=== PATIENT | male | born 1990 | race Caucasian/White ===

== ENCOUNTER 2021-06-23 23:19 | Emergency (ER) | payer BC ==
[2021-06-23] MEDS ORDERED: Lidocaine 1% 10 ML MDV INJECT ONE (23:39)
--- NOTE | 2021-06-24 01:16 | EDM.PDOC ---
ED HPI GENERAL MEDICAL PROBLEM - General Chief Complaint: Upper Extremity Injury/Pain Stated Complaint: RT HAND INJURY Time Seen by Provider: 06/24/21 00:18 Source of Information: Reports: Patient History Limitations: Reports: No Limitations - History of Present Illness INITIAL COMMENTS - FREE TEXT/NARRATIVE: Patient is a 30-year-old male who injured his right hand by slamming it into a mirror prior to arrival when he found out a friend of his has recently . Patient has been drinking some alcohol tonight. He denies using any other drugs. He states he is in control of himself currently. Is up-to-date with his tetanus. He is refusing x-ray of his hand see if there is any glass foreign body or any bony injury. Onset: Today (Prior to arrival) Location: Reports: Upper Extremity, Right Quality: Reports: Ache Severity: Mild Improves with: Reports: None Worsens with: Reports: None Right Hand Pain Score (Numeric/FACES): 6 - Related Data Allergies Allergy/AdvReac Type Severity Reaction Status Date / Time No Known Allergies Allergy Verified 06/23/21 23:38 Home Meds: Home Meds . [No Known Home Meds] 12/30/18 [History] Past Medical History - Past Health History Medical/Surgical History: Denies Medical/Surgical History Musculoskeletal History: Reports: Other (See Below) Other Musculoskeletal History: Injury to C7 in 2016 - Infectious Disease History Infectious Disease History: Reports: None - Past Surgical History Musculoskeletal Surgical History: Reports: Shoulder Surgery Social & Family History - Family History Family Medical History: No Pertinent Family History - Tobacco Use Tobacco Use Status *Q: Never Tobacco User - Recreational Drug Use Recreational Drug Use: No Review of Systems - Review of Systems Review Of Systems: Comprehensive ROS is negative, except as noted in HPI. Constitutional: Reports: No Symptoms Musculoskeletal: Reports: Hand Pain Skin: Reports: Lesions Neurological: Reports: No Symptoms ED EXAM, GENERAL - Physical Exam Exam: See Below Exam Limited By: No Limitations General Appearance: Alert, No Apparent Distress Head: Atraumatic, Normocephalic Neck: Normal Inspection Respiratory/Chest: No Respiratory Distress Extremities: Other (2 lacerations of his right hand on either side of his third knuckle 1 of which is gaping open and is missing a flap of skin.) Neurological: Alert, Normal Cognition Psychiatric: Flat Affect Skin Exam: Warm ED TRAUMA EXTREMITY PROCEDURES - Laceration/Wound Repair Right Hand Lac/Wound Length In cm: 8 Appearance: Subcutaneous, Clean Distal NVT: Neuro & Vascular Intact, No Tendon Injury Anesthetic Type: Local Local Anesthesia - Lidocaine (Xylocaine): 1% Plain Local Anesthetic Volume: Other (10cc) Skin Prep: Providone-Iodine (Betadine) Exploration/Debridement/Repair: Wound Explored Closed With: Sutures Suture Size: 4-0 Suture Type: Nylon Progress/Comments: Fairly good approximation of wound edges even the area where patient had a flap of skin missing. Patient tolerated procedure well. Bleeding was well controlled. Course - Vital Signs Text/Narrative:: Patient left without having a dressing applied her discharge instructions. Last Recorded V/S: Last Vital Signs Temp 98.5 F 06/23/21 23:35 Pulse 78 06/23/21 23:35 Resp 16 06/23/21 23:35 BP 121/87 06/23/21 23:35 Pulse Ox 98 06/23/21 23:35 - Orders/Labs/Meds Meds: Medications Discontinued Medications Generic Name Dose Route Start Last Admin Trade Name Joel PRN Reason Stop Dose Admin Lidocaine HCl 10 ml 06/23/21 23:39 06/24/21 00:26 Lidocaine 1% 10 Ml Mdv INJECT 06/23/21 23:40 10 ml ONETIME ONE Administration Departure - Departure Time of Disposition: 01:18 Disposition: Home, Self-Care 01 Condition: Good Clinical Impression: Laceration of multiple sites of right hand and fingers - Discharge Information Instructions: Laceration Care, Adult Referrals: PCP,None [Primary Care Provider] - Forms: ED Department Discharge Additional Instructions: Wound care instructions were given by me. Patient knows to keep wound clean and dry and return to ER if any sign of infection. Suture removal in 10 days. Return sooner if worse. Sepsis Event Note (ED) - Evaluation Sepsis Screening Result: No Definite Risk - Focused Exam Vital Signs: Vital Signs Temp Pulse Resp BP Pulse Ox 06/23/21 23:35 98.5 F 78 16 121/87 98
== END 2021-06-24 01:08 | disposition home or self-care (01) ==
LOC: JD.ED 23:19
DX: S61.411A Laceration without foreign body of right hand, initial encounter (principal); W25.XXXA Contact with sharp glass, initial encounter
CPT/HCPCS: 12004; 99282; 99282-25